=== PATIENT | male | born 1960 | race Caucasian/White ===

== ENCOUNTER 2018-05-22 19:12 | Inpatient (IN) | payer OTHER ==
[~2018-05-22] VITALS: Ht 177.8 cm; Wt 99.6 kg
[2018-05-22 19:20] VITALS: BP_SYST 116
[2018-05-22] MEDS ORDERED: NS 1000 ML IV.SOLN IV ONE (20:15)
[2018-05-22] MEDS ORDERED: ACETAMINOPHEN 500 MG TABLET PO ONE ×2 (20:15→21:00)
[2018-05-22 21:14] LABS: BASOPHILS % (AUTO) 0.4 % (0.0-2.0); EOSINOPHILS # (AUTO) 0.4 K/uL (0.0-0.4); EOSINOPHILS % (AUTO) 4.7 % (0.0-4.0); HEMATOCRIT 36.4 % (36-54); HEMOGLOBIN 12.1 g/dL (14.0-18.0); LYMPHOCYTES # (AUTO) 2.8 K/uL (1.0-5.5); LYMPHOCYTES % (AUTO) 33.9 % (20.5-51.5); MEAN CORPUSCULAR HEMOGLOBIN 30 pg (27-31); MEAN CORPUSCULAR HGB CONC 33 % (32-36); MEAN CORPUSCULAR VOLUME 91 fL (79.0-98.0); MONOCYTES # (AUTO) 1.1 K/uL (0.0-1.0); MONOCYTES % (AUTO) 13.1 % (1.7-9.3); NEUTROPHILS # (AUTO) 4.1 K/uL (1.8-7.7); NEUTROPHILS % (AUTO) 47.9 % (40.0-70.0); PLATELET COUNT (AUTO) 384 K/uL (130-430); RED CELL DISTRIBUTION WIDTH 12.7 % (9.0-15.0); WHITE BLOOD COUNT (AUTO) 8.4 K/uL (4.8-10.8)
[2018-05-22 21:23] LABS: ANION GAP 10 (5-15); CALCIUM 9.2 mg/dL (8.4-11.0); CHLORIDE 103 mmol/L (98-107); CREATININE 1.22 mg/dL (0.55-1.30); GLUCOSE 153 mg/dL (70-99); POTASSIUM 4.1 mmol/L (3.5-5.1); SODIUM SERUM 139 mmol/L (136-145); UREA NITROGEN, BLOOD 27 mg/dL (8-21)
[2018-05-22 21:24] LABS: GFR AFRICAN AMERICAN 78 mL/min (>90)
[2018-05-22 21:27] LABS: ALANINE AMINOTRANSFERASE 46 U/L (12-78); ALBUMIN 3.2 g/dL (3.4-4.8); ASPARTATE AMINOTRANSFERASE 23 U/L (10-37); TOTAL BILIRUBIN 0.3 mg/dL (0.0-1.0)
[2018-05-22 21:28] LABS: INR 1.1 (0.80-1.20)
[2018-05-22 21:29] LABS: ALCOHOL, BLOOD < 3 mg/dL (<10)
[2018-05-22] MEDS ORDERED: LABE200T28 PO (21:50)
[2018-05-22] MEDS ORDERED: INSU100V9 SUBCUT (21:50)
[2018-05-22] MEDS ORDERED: LABE100T PO (21:50)
[2018-05-22] MEDS ORDERED: ENAL10TA PO (21:50)
[2018-05-22 22:32] VITALS: BP_SYST 160
[2018-05-22] MEDS ORDERED: MORPHINE 2 MG/ML INJ. SYRINGE IVP PRN (22:45)
[2018-05-22] MEDS ORDERED: INSULIN ASPART 100 UNITS/ML, 10 ML VIAL (NovoLOG) SUBCUT PRN (22:45)
[2018-05-22] MEDS ORDERED: HYDROcodone/ACETAMIN 5-325 MG TAB (NORCO/ VICODIN) PO PRN (22:45)
[2018-05-22] MEDS ORDERED: ONDANSETRON HCL 4 MG/2 ML VIAL IVP PRN (22:45)
[2018-05-22] MEDS ORDERED: ACETAMINOPHEN 325 MG TABLET PO PRN (22:45)
[2018-05-22] MEDS ORDERED: ZOLPIDEM TARTRATE 5 MG TABLET PO PRN (22:45)
[2018-05-23 00:43] VITALS: BP_SYST 157
[2018-05-23 00:57] VITALS: BP_SYST 150
[2018-05-23 07:26] LABS: BASOPHILS % (AUTO) 0.7 % (0.0-2.0); EOSINOPHILS # (AUTO) 0.4 K/uL (0.0-0.4); EOSINOPHILS % (AUTO) 5.1 % (0.0-4.0); HEMATOCRIT 32.2 % (36-54); HEMOGLOBIN 11.3 g/dL (14.0-18.0); LYMPHOCYTES # (AUTO) 2.6 K/uL (1.0-5.5); LYMPHOCYTES % (AUTO) 36.7 % (20.5-51.5); MEAN CORPUSCULAR HEMOGLOBIN 32 pg (27-31); MEAN CORPUSCULAR HGB CONC 35 % (32-36); MEAN CORPUSCULAR VOLUME 91 fL (79.0-98.0); MONOCYTES # (AUTO) 0.8 K/uL (0.0-1.0); MONOCYTES % (AUTO) 12.1 % (1.7-9.3); NEUTROPHILS # (AUTO) 3.2 K/uL (1.8-7.7); NEUTROPHILS % (AUTO) 45.4 % (40.0-70.0); PLATELET COUNT (AUTO) 314 K/uL (130-430); RED BLOOD CELL COUNT(AUTO) 3.56 MIL/uL (4.2-6.2); RED CELL DISTRIBUTION WIDTH 12.4 % (9.0-15.0)
[2018-05-23 07:44] LABS: ALBUMIN 2.9 g/dL (3.4-4.8); CALCIUM 8.6 mg/dL (8.4-11.0); CREATININE 1.13 mg/dL (0.55-1.30); THYROID STIMULATING HORMONE 0.78 uIu/mL (0.34-4.82); TOTAL BILIRUBIN 0.3 mg/dL (0.0-1.0)
[2018-05-23 08:18] VITALS: BP_SYST 135
[2018-05-23] MEDS ORDERED: FAMOTIDINE 20 MG TABLET PO SCH (09:00)
[2018-05-23] MEDS ORDERED: LABETALOL HCL 100 MG TABLET PO SCH (09:00)
[2018-05-23 12:10] VITALS: BP_SYST 129
[2018-05-23] MEDS ORDERED: traMADol HCL HCL 50 MG TABLET (ULTRAM) PO PRN (12:30)
[2018-05-23] MEDS ORDERED: cloNIDine HCL 0.1 MG TABLET PO PRN (14:15)
[2018-05-23] MEDS ORDERED: ALPRAZolam 0.25 MG TABLET PO PRN (14:30)
[2018-05-23 16:10] VITALS: BP_SYST 155
[2018-05-23 20:00] VITALS: BP_SYST 131
== END 2018-05-23 21:10 | disposition left against medical advice (07) | DRG 103 ==
LOC: SED 19:12 → STU 22:08
PROVIDERS: ADMIT Internal Medicine; ATTEND Internal Medicine
DX: R51 Headache (principal); I69.354 Hemiplegia and hemiparesis following cerebral infarction affecting left non-dominant side; Z53.21 Procedure and treatment not carried out due to patient leaving prior to being seen by health care provider; I10 Essential (primary) hypertension; E11.65 Type 2 diabetes mellitus with hyperglycemia; N19 Unspecified kidney failure; G89.29 Other chronic pain; R79.89 Other specified abnormal findings of blood chemistry; E78.5 Hyperlipidemia, unspecified; M13.812 Other specified arthritis, left shoulder; Z79.899 Other long term (current) drug therapy; Z79.4 Long term (current) use of insulin
CPT/HCPCS: 36415; 70250-TC; 70360-TC; 70450-TC; 71045; 73030; 80053; 80061; 82962; 84443-TC; 84484; 85025; 85610-TC; 85730-TC; 87081; 93005; 93880; 96360; 96361; 99285; G0482; J1815; J7030